=== PATIENT | male | born 1985 | race Caucasian/White ===

== ENCOUNTER → 2020-05-22 12:24 | Outpatient (CLI) | payer OTHER, SELFPAY ==
[2020-05-22] MEDS: COVID-19 VACC #1, MRNA(MOD) 100 MCG/0.5 ML VIAL IM (12:30)
== END ==
PROVIDERS: Family Provider Family Medicine; PCP Family Medicine; Visit Provider Internal Medicine
DX: Z23 Encounter for immunization (principal)
CPT/HCPCS: 0011A; 91301

== ENCOUNTER → 2020-06-19 08:01 | Outpatient (CLI) | payer OTHER, SELFPAY ==
[2020-06-19] MEDS: COVID-19 VACC #2, MRNA(MOD) 100 MCG/0.5 ML VIAL IM (08:06)
== END ==
PROVIDERS: Family Provider Family Medicine; PCP Family Medicine; Visit Provider Internal Medicine
DX: Z23 Encounter for immunization (principal)
CPT/HCPCS: 0012A; 91301

== ENCOUNTER 2021-11-25 07:06 | Emergency (ER) | payer SELFPAY ==
[2021-11-25] VITALS (11 sets, daily range): BP systolic 97–118; BP diastolic 54–76; PULSE 63–105; RESP 11–20; TEMP 36.9; O2SAT 95–100; BMI 23.6
--- NOTE | 2021-11-25 07:13 | ED_ITS ---
HPI - Syncope General Chief Complaint: Syncope Stated Complaint: Syncope Time Seen by Provider: 11/25/21 07:11 History of Present Illness HPI narrative: Patient is a healthy 36-year-old male who presents with a syncopal episode. He states he was in the ER last night with his daughter who was diagnosed with RSV he got up she has the restroom when his heard a thud and he had passed out. He stood up and passed out again. Blood pressure was initially unobtainable by EMS however did improve with IV fluids. Brief loss of consciousness. He says he has had issues with passing out before. He has been extremely restrictive diet for the past 8 months for he only eats a 1000 calories a day he has lost about 50 lb. He is quite with joint about tracking all of his water intake. He has not had any fever chills cough nausea vomiting abdominal pain. Overall feeling a little bit better. Review of Systems Review of Systems Narrative: GENERAL: Denies chills, fatigue, malaise, fever, sweats, travel HEENT: Denies sinus pain, ear pain, sore throat, difficulty swallowing, neck pain RESPIRATORY: Denies dyspnea, cough, wheezing, hemoptysis, sputum. CARDIOVASCULAR: Denies chest pain, palpitations, orthopnea, edema GASTROINTESTINAL: Denies nausea, vomiting, abdominal pain, diarrhea, constipation, melena. : Denies dysuria, frequency, incontinence, hematuria, urinary retention, flank pain. MUSCULOSKELETAL: Denies weakness, joint pain, or bony pain SKIN: No rash, no erythema, no pruritus NEUROLOGIC: + syncope Denies weakness, dizziness, headache, numbness, change in speech, confusion PSYCHIATRIC: No concerning psychosocial issues. 12 point review of systems is negative except for those stated above and HPI Patient History Social History Smoking Status: Never smoker Exam Initial Vital Signs Initial Vital Signs: Vital Signs Temperature 98.5 F 11/25/21 07:17 Pulse Rate 66 11/25/21 07:17 Respiratory Rate 18 11/25/21 07:17 Blood Pressure 105/69 11/25/21 07:17 Pulse Oximetry 100 11/25/21 07:17 Oxygen Delivery Method 11/25/21 07:17 GENERAL: A well alert 36-year-old male and in no acute distress. HEENT: Head atraumatic,EOMI, pupils reactive, face symmetric, moist mucous membranes CARDIOVASCULAR: Regular rate and rhythm without murmurs, rubs or gallops. RESPIRATORY: Breath sounds equal bilaterally, no wheezes rales or rhonchi. ABDOMEN: Soft, nontender. Normoactive bowel sounds all 4 quadrants. No guarding or rebound. EXTREMITIES: Normal range of motion, no clubbing or edema. Neurovascularly intact NEUROLOGICAL: Alert and oriented x4.Normal gait and speech. Diamond Cutter strength equal bilaterally moving all extremities SKIN: Warm, dry, no laceration, no petechiae, no rashes or lesions. Course Orders Ordered: ED Orders 11/25/21 07:13 Complete Blood Count AUTO DIFF Stat Comprehensive Metabolic Panel Stat Lactate (Lactic Acid) Stat Lipase Stat Troponin & CK Cardiac Panel Stat 11/25/21 07:18 XR chest 1V Stat 11/25/21 07:24 CT head/brain wo con Stat 11/25/21 07:38 EKG-12 Lead Stat 11/25/21 07:40 COVID19 -Nasal RAPID/Pre-Proc Stat 11/25/21 09:34 Urine Drug Screen, Rapid Stat Discontinued Medications Sodium Chloride (Normal Saline 0.9%) 1,000 mls @ 1,000 mls/hr IV CONT ELENA Last Infusion: 11/25/21 08:45 Dose: 0 mls/hr Documented By: Admin: 11/25/21 07:27 Dose: 1,000 mls/hr Documented By: PETRA Vital Signs Vital signs: Vital Signs - 8 hr 11/25/21 08:30 11/25/21 08:00 11/25/21 08:30 Pulse Rate 66 66 Pulse Rate [Orthostatic Lying] Pulse Rate [Orthostatic Sitting] Pulse Rate [Orthostatic Standing] Respiratory Rate 13 13 Blood Pressure 100/63 Blood Pressure [Orthostatic Lying] Blood Pressure [Orthostatic Sitting] Blood Pressure [Orthostatic Standing] Pulse Oximetry 100 100 11/25/21 08:41 11/25/21 08:41 11/25/21 08:45 Pulse Rate 79 67 Pulse Rate [Orthostatic Lying] Pulse Rate [Orthostatic Sitting] Pulse Rate [Orthostatic Standing] Respiratory Rate 15 15 Blood Pressure 100/63 Blood Pressure [Orthostatic Lying] Blood Pressure [Orthostatic Sitting] Blood Pressure [Orthostatic Standing] Pulse Oximetry 100 100 11/25/21 08:45 11/25/21 09:00 11/25/21 09:00 Pulse Rate 68 Pulse Rate [Orthostatic Lying] Pulse Rate [Orthostatic Sitting] Pulse Rate [Orthostatic Standing] Respiratory Rate 11 L Blood Pressure 97/54 L 98/56 L Blood Pressure [Orthostatic Lying] Blood Pressure [Orthostatic Sitting] Blood Pressure [Orthostatic Standing] Pulse Oximetry 100 11/25/21 09:20 11/25/21 09:15 11/25/21 09:15 Pulse Rate 74 Pulse Rate [Orthostatic Lying] 67 Pulse Rate [Orthostatic Sitting] 90 Pulse Rate [Orthostatic Standing] 105 H Respiratory Rate 13 Blood Pressure 105/59 L Blood Pressure [Orthostatic Lying] 97/54 L Blood Pressure [Orthostatic Sitting] 98/56 L Blood Pressure [Orthostatic Standing] 105/59 L Pulse Oximetry 100 11/25/21 09:16 11/25/21 09:16 11/25/21 09:17 Pulse Rate 87 100 H Pulse Rate [Orthostatic Lying] Pulse Rate [Orthostatic Sitting] Pulse Rate [Orthostatic Standing] Respiratory Rate 20 20 Blood Pressure 112/76 Blood Pressure [Orthostatic Lying] Blood Pressure [Orthostatic Sitting] Blood Pressure [Orthostatic Standing] Pulse Oximetry 100 100 11/25/21 09:17 Pulse Rate Pulse Rate [Orthostatic Lying] Pulse Rate [Orthostatic Sitting] Pulse Rate [Orthostatic Standing] Respiratory Rate Blood Pressure 118/76 Blood Pressure [Orthostatic Lying] Blood Pressure [Orthostatic Sitting] Blood Pressure [Orthostatic Standing] Pulse Oximetry MDM - Syncope Lab Data Result diagrams: 11/25/21 07:13 11/25/21 07:13 Labs: Lab Results 11/25/21 11/25/21 11/25/21 Range/Units 07:13 07:13 07:13 WBC 6.0 (4.5-11.0) X10^3/uL RBC 4.94 (4.5-5.9) X10^6/uL Hgb 14.7 (13.5-17.5) g/dL Hct 43.0 (41-53) % MCV 87.0 (80-100) fL MCH 29.8 (26-34) PG MCHC 34.3 (30-36) % RDW 13.4 (11.6-14.8) % Plt Count 276 (150-400) X10^3/uL Neut % (Auto) 32.4 L (50-75) % Lymph % (Auto) 54.7 H (25-40) % [place] % (Auto) 9.4 (3-14) % Eos % (Auto) 2.7 (2-4) % Baso % (Auto) 0.8 (0-2) % Neut # (Auto) 2000 (3256-1165) /uL Lymph # (Auto) 3300 (1687-8177) /uL [place] # (Auto) 600 (0-900) /uL Eos # (Auto) 200 (0-450) /uL Baso # (Auto) 0 (0-100) /uL Sodium 140 (137-145) mmol/L Potassium 4.4 (3.4-5.1) mmol/L Chloride 101 (98-107) mmol/L Carbon Dioxide 25 (22-32) mmol/L BUN 27 H (9-20) mg/dL Creatinine 1.12 (0.66-1.25) mg/dL Estimated GFR > 60 (>60) mL/min BUN/Creatinine Ratio 24.1 H (6-22) Glucose 119 H (70-100) mg/dL Lactate 2.4 H (0.7-2.1) mmol/L Calcium 9.5 (8.4-10.2) mg/dL Total Bilirubin 0.5 (0.2-1.3) mg/dL AST 26 (17-59) IU/L ALT 20 (<50) IU/L Alkaline Phosphatase 58 (38-126) U/L Total Creatine Kinase 127 (55-170) U/L CK-MB (CK-2) 1.05 (<2.37) ng/mL CK-MB (CK-2) Rel Index 0.8 L (1.5-5.0) % Troponin I < 0.012 (0.01-0.034) ng/mL Total Protein 7.7 (6.3-8.2) g/dL Albumin 4.4 (3.5-5.0) g/dL Globulin 3.3 (1.7-4.1) g/dL Albumin/Globulin Ratio 1.3 (1.0-2.8) Lipase 117 (23-300) U/L U Opiates 300ng/mL cut (Negative) Ur Oxycodone Screen (Negative) Urine Methadone Screen (Negative) Ur Barbiturates Screen (Negative) U Tricyclic Antidepress (Negative) Ur Phencyclidine Scrn (Negative) Ur Amphetamines Screen (Negative) U Methamphetamines Scrn (Negative) Ur MDMA Scrn (Ecstasy) (Negative) U Benzodiazepines Scrn (Negative) Urine Cocaine Screen (Negative) U Marijuana (THC) Screen (Negative) SARS-CoV-2 (PCR) (Negative) 11/25/21 11/25/21 Range/Units 07:40 09:34 WBC (4.5-11.0) X10^3/uL RBC (4.5-5.9) X10^6/uL Hgb (13.5-17.5) g/dL Hct (41-53) % MCV (80-100) fL MCH (26-34) PG MCHC (30-36) % RDW (11.6-14.8) % Plt Count (150-400) X10^3/uL Neut % (Auto) (50-75) % Lymph % (Auto) (25-40) % [place] % (Auto) (3-14) % Eos % (Auto) (2-4) % Baso % (Auto) (0-2) % Neut # (Auto) (9071-5665) /uL Lymph # (Auto) (5114-9317) /uL [place] # (Auto) (0-900) /uL Eos # (Auto) (0-450) /uL Baso # (Auto) (0-100) /uL Sodium (137-145) mmol/L Potassium (3.4-5.1) mmol/L Chloride (98-107) mmol/L Carbon Dioxide (22-32) mmol/L BUN (9-20) mg/dL Creatinine (0.66-1.25) mg/dL Estimated GFR (>60) mL/min BUN/Creatinine Ratio (6-22) Glucose (70-100) mg/dL Lactate (0.7-2.1) mmol/L Calcium (8.4-10.2) mg/dL Total Bilirubin (0.2-1.3) mg/dL AST (17-59) IU/L ALT (<50) IU/L Alkaline Phosphatase (38-126) U/L Total Creatine Kinase (55-170) U/L CK-MB (CK-2) (<2.37) ng/mL CK-MB (CK-2) Rel Index (1.5-5.0) % Troponin I (0.01-0.034) ng/mL Total Protein (6.3-8.2) g/dL Albumin (3.5-5.0) g/dL Globulin (1.7-4.1) g/dL Albumin/Globulin Ratio (1.0-2.8) Lipase (23-300) U/L U Opiates 300ng/mL cut Negative (Negative) Ur Oxycodone Screen Negative (Negative) Urine Methadone Screen Negative (Negative) Ur Barbiturates Screen Negative (Negative) U Tricyclic Antidepress Negative (Negative) Ur Phencyclidine Scrn Negative (Negative) Ur Amphetamines Screen Negative (Negative) U Methamphetamines Scrn Negative (Negative) Ur MDMA Scrn (Ecstasy) Negative (Negative) U Benzodiazepines Scrn Negative (Negative) Urine Cocaine Screen Negative (Negative) U Marijuana (THC) Screen Negative (Negative) SARS-CoV-2 (PCR) Negative (Negative) Point of Care Testing Glucose POC 119 Imaging Data Chest x-ray: Radiologist's Impression: : Alphonso Jacinto MR#: [id number] : 1985 Acct:[id number] Age/Sex: 36 / M Date of Service: 11/25/21 Loc: Accession Number: [id number] ?? Procedure: XR chest 1V Ordering Provider: Zulema Duncan D.O. PROCEDURE:? XR CHEST 1V ? INDICATIONS:? chest pain ? TECHNIQUE:? One view of the chest was acquired.? ? COMPARISON:? None. ? FINDINGS:? ? Surgical changes and devices:? None.? ? Lungs and pleura:? Lungs are clear.? No pleural effusions or pneumothorax.? ? Mediastinum:? Mediastinal contours appear normal.? Heart size is normal.? ? Bones and chest wall:? No suspicious bony lesions.? Overlying soft tissues a ppear unremarkable.? ? IMPRESSION:? No acute cardiopulmonary disease. ? ? ? Dictated by: Goldie Mota M.D. on 11/25/2021 at 8:30 ? ? Approved by: Goldie Mota M.D. on 11/25/2021 at 8:30 ? CT scan - head: Radiologist's Impression: ?Alphonso Jacinto MR#: [id number] : 1985 Acct:[id number] Age/Sex: 36 / M Date of Service: 11/25/21 Loc: ED Accession Number: [id number] ?? Procedure: CT head/brain wo con Ordering Provider: Zulema Duncan D.O. PROCEDURE:? CT HEAD/BRAIN WO CON ? INDICATIONS:? syncope x 2 ? TECHNIQUE:? Noncontrast 4.5 mm thick angled axial sections acquired from the foramen magnum to the vertex, with coronal and sagittal reformats.? For radiation dose reduction, the following was used:? automated exposure control, adjustment of mA and/or kV according to patient size.? ? COMPARISON:? None. ? FINDINGS:? Image quality:? Excellent.? ? CSF spaces:? Basal cisterns are patent.? No extra-axial fluid collections.? Ventricles are normal in size and shape.? ? Brain:? No midline shift.? No intracranial masses or hemorrhage.? Guzman-white matter interface is normal.? ? Skull and face:? Calvarium and visualized facial bones are intact, without suspicious lesions.? ? Sinuses:? Visualized sinuses and mastoids are clear.? ? IMPRESSION:? ? 1. No acute intracranial abnormalities. ? No significant discrepancy with the inspector agricultural commodities radiology preliminary report. ? ? ? Dictated by: Goldie Mota M.D. on 11/25/2021 at 8:09 ?? ECG Data Interpretation: Normal sinus rhythm rate 59 MD interval 216 QRS 96 QTC 396 MDM Narrative Medical decision making narrative: Patient has syncopal episode unclear why. He apparently has had syncopal episodes previously. Does not appear seizure. His COVID test is negative. He is not short of breath. He is found to have type 1 av block on is not currently on any beta-katerina. This should not cause him to syncopized. He is ambulatory in the ED. He has negative orthostatics. His initial lactate was 2.2 but he did receive 2 L of fluid afterwards. No sign of infection. His daughter is sick with RSV but he is not having upper respiratory infectious like symptoms. At this time no indication for further workup. Discharge Plan Departure Patient Disposition: Home Clinical Impression: Syncope, vasovagal Instructions: DI for Syncope in Adults (Fainting) Activity Restrictions/Additional Instructions: *You have been diagnosed with vasovagal *What to do: At this time workup in the emergency department overall reassuring. I do recommend possible Holter monitor outpatient. This will not set up with PCP. *Continue to take medications as directed *Follow up with your primary care provider in 2-3 days or call [phone] *Return to ER if you should have recurrent episode of passing out, chest pain or any new, worsening or concerning symptoms Referrals: Jewel Cheema MD [Primary Care Provider] - Visit Report Forms: Patient Portal/API
--- NOTE | 2021-11-25 07:18 | DI.RAD.S_ITS ---
PROCEDURE: XR CHEST 1V INDICATIONS: chest pain TECHNIQUE: One view of the chest was acquired. COMPARISON: None. FINDINGS: Surgical changes and devices: None. Lungs and pleura: Lungs are clear. No pleural effusions or pneumothorax. Mediastinum: Mediastinal contours appear normal. Heart size is normal. Bones and chest wall: No suspicious bony lesions. Overlying soft tissues appear unremarkable. IMPRESSION: No acute cardiopulmonary disease. Dictated by: Goldie Mota M.D. on 11/25/2021 at 8:30 Approved by: Goldie Mota M.D. on 11/25/2021 at 8:30
--- NOTE | 2021-11-25 07:24 | DI.CT.S_ITS ---
PROCEDURE: CT HEAD/BRAIN WO CON INDICATIONS: syncope x 2 TECHNIQUE: Noncontrast 4.5 mm thick angled axial sections acquired from the foramen magnum to the vertex, with coronal and sagittal reformats. For radiation dose reduction, the following was used: automated exposure control, adjustment of mA and/or kV according to patient size. COMPARISON: None. FINDINGS: Image quality: Excellent. CSF spaces: Basal cisterns are patent. No extra-axial fluid collections. Ventricles are normal in size and shape. Brain: No midline shift. No intracranial masses or hemorrhage. Guzman-white matter interface is normal. Skull and face: Calvarium and visualized facial bones are intact, without suspicious lesions. Sinuses: Visualized sinuses and mastoids are clear. IMPRESSION: 1. No acute intracranial abnormalities. No significant discrepancy with the night time babysitter radiology preliminary report. Dictated by: Goldie Mota M.D. on 11/25/2021 at 8:09 Approved by: Goldie Mota M.D. on 11/25/2021 at 8:10
[2021-11-25 07:26] LABS: Add Manual Diff / Slide Review NO; Basophils Absolute Auto 0 /uL (0-100); Basophils Percent Auto 0.8 % (0-2); Eosinophils Absolute Auto 200 /uL (0-450); Eosinophils Percent Auto 2.7 % (2-4); Hemoglobin 14.7 g/dL (13.5-17.5); Lymphocytes Absolute Auto 3300 /uL (1100-4500); Lymphocytes Percent Auto 54.7 % (25-40); Mean Corpuscular HGB Conc 34.3 % (30-36); Mean Corpuscular Hemoglobin 29.8 PG (26-34); Monocytes Absolute Auto 600 /uL (0-900); Monocytes Percent Auto 9.4 % (3-14); Neutrophils Absolute Auto 2000 /uL (1500-7000); Neutrophils Percent Auto 32.4 % (50-75); Platelet Count 276 X10^3/uL (150-400); Red Blood Cell Count 4.94 X10^6/uL (4.5-5.9); Red Cell Distribution Width 13.4 % (11.6-14.8)
[2021-11-25] MEDS: SODIUM CHLORIDE 0.9% 1,000 ML 1000 ML IV (07:27)
[2021-11-25 07:31] LABS: HEMOLYSIS < 15 (0-50)
[2021-11-25 07:38] LABS: Alanine Aminotransferase 20 IU/L (<50); Albumin 4.4 g/dL (3.5-5.0); Albumin Globulin Ratio 1.3 (1.0-2.8); Alkaline Phosphatase 58 U/L (38-126); Aspartate Aminotransferase 26 IU/L (17-59); BUN Creatinine Ratio 24.1 (6-22); Bilirubin Total 0.5 mg/dL (0.2-1.3); Blood Urea Nitrogen 27 mg/dL (9-20); Calcium 9.5 mg/dL (8.4-10.2); Carbon Dioxide 25 mmol/L (22-32); Chloride 101 mmol/L (98-107); Creatine Kinase 127 U/L (55-170); Estimated Glomerular Filt Rate > 60 mL/min (>60); Globulin 3.3 g/dL (1.7-4.1); Glucose 119 mg/dL (70-100); Lactate (Lactic Acid) 2.4 mmol/L (0.7-2.1); Lipase 117 U/L (23-300); Potassium 4.4 mmol/L (3.4-5.1); Sodium 140 mmol/L (137-145); Total Protein 7.7 g/dL (6.3-8.2)
[2021-11-25 07:47] LABS: Troponin I < 0.012 ng/mL (0.01-0.034)
[2021-11-25 07:53] LABS: CKMB % Relative Index 0.8 % (1.5-5.0); Creatine Kinase MB 1.05 ng/mL (<2.37)
[2021-11-25 08:02] LABS: COVID19 -Nasal RAPID Negative (Negative)
[2021-11-25 09:23] LABS: Reflexed Lactate in 2 Hours Y
--- NOTE | 2021-11-25 09:30 | PC.NURSE ---
independent ambulated steady gate
[2021-11-25 09:42] LABS: UR Morphine/Opiate cutoff 300 Negative (Negative); Ur Creatinine Normal (Normal); Ur Specific Gravity Normal (Normal); Urine Amphetamines Negative (Negative); Urine Barbiturates Negative (Negative); Urine Benzodiazepines Negative (Negative); Urine Cocaine Negative (Negative); Urine MDMA Negative (Negative); Urine Methadone Negative (Negative); Urine Methamphetamines Negative (Negative); Urine Oxycodone Negative (Negative); Urine Phencyclidine Negative (Negative); Urine Tetrahydrocannabinol Negative (Negative); Urine Tricyclic Antidepressant Negative (Negative); Urine pH Normal (Normal)
== END 2021-11-25 09:50 | disposition home or self-care (01) ==
PROVIDERS: Emergency Provider Emergency Medicine; Family Provider Family Medicine; PCP Family Medicine
DX: R55 Syncope and collapse (principal); R07.9 Chest pain, unspecified; Z20.822 Contact with and (suspected) exposure to COVID-19
CPT/HCPCS: 70450; 71045; 80053; 80305; 82550; 82553; 83605; 83690; 84484; 85025; 87635; 93005; 93010; 96360; 99284; C9803